=== PATIENT | female | born 2000 | race Hispanic/Latino ===

== ENCOUNTER 2021-12-31 10:25 | Emergency (ER) | payer SELFPAY ==
[2021-12-31] MEDS ORDERED: Metoclopramide HCl 10 MG/2 ML VIAL ONE (10:51)
[2021-12-31] MEDS ORDERED: diphenhydrAMINE 50 MG/ML VIAL ONE (10:52)
== END 2021-12-31 12:21 | disposition home or self-care (01) ==
LOC: CSHERS 10:25
DX: S09.90XA Unspecified injury of head, initial encounter (principal); M54.2 Cervicalgia; X58.XXXA Exposure to other specified factors, initial encounter
CPT/HCPCS: 70450; 72125; 96365; 96375; J1200; J2765